=== PATIENT | female | born 1960 | race American Indian/Alaskan Native ===

== ENCOUNTER 2020-08-12 10:15 | Emergency (ER) | payer SELFPAY ==
[2020-08-12] MEDS ORDERED: LORAZEPAM 1 MG TABLET ONE (11:27)
[2020-08-12 11:42] LABS: Absolute Lymphocytes (CBC) 0.9 K/uL (0.7-4.9); Basophils % 0.6 % (0-1.3); Hematocrit 41.5 % (36.0-45.0); Lymphocytes % 16.5 % (15.3-44.8); MPV 9.1 fL (7.6-11.3); RBC Red Blood Cell Count 4.62 M/uL (3.86-4.86)
[2020-08-12 12:01] LABS: Potassium 4.3 mmol/L (3.5-5.1)
[2020-08-12 13:33] LABS: Urine Blood TRACE (NEG); Urine Glucose NEGATIVE (NEG); Urine Protein NEGATIVE (NEG); Urine Specific Gravity 1.025 (1.005-1.030); Urine pH 5.5 (5.0-7.0)
--- NOTE | 2020-08-12 13:37 | EDPHYS ---
Physician Documentation [facility] Name: Oralia Rausch Age: 59 yrs Sex: Female : 1960 Arrival Date: 08/12/2020 Time: 10:17 Bed 8 Private MD: ED Physician Josh Campo HPI: 08/12 15:43 This 59 yrs old Other Female presents to ER via Ambulatory with complaints of Pain, kdr Seizure. 15:44 The patient is having twitching to the left side of her face which she feels a is kdr prodrome to having a seizure. She does not seem to describe an actual seizure but feels that she may have one. She has had trigeminal neuralgia for about seven years and has been on various medications including tegretol. Onset: The symptoms/episode began/occurred today. Severity of symptoms: At their worst the symptoms were very mild in the emergency department the symptoms are unchanged. The patient has experienced similar episodes in the past, a few times. The patient has not recently seen a physician. Historical: - Allergies: 10:41 No Known Allergies; iw - Home Meds: 11:31 Carbamazepine Oral [Active]; gabapentin oral oral [Active]; sertraline oral oral bp [Active]; Alprazolam Oral [Active]; Tramadol Oral [Active]; Metformin Oral [Active]; - PMHx: 10:41 trigeminal neuralgia; kidney cancer; iw - PSHx: 10:41 kidney removed, right; ovary removed; breast augmentation; iw - Immunization history:: Adult Immunizations unknown. - Social history:: Smoking status: unknown. ROS: 17:36 Constitutional: Negative for fever, chills, and weight loss, Eyes: Negative for injury, kdr pain, redness, and discharge, ENT: Negative for injury, pain, and discharge, Neck: Negative for injury, pain, and swelling, Cardiovascular: Negative for chest pain, palpitations, and edema, Respiratory: Negative for shortness of breath, cough, wheezing, and pleuritic chest pain, Abdomen/GI: Negative for abdominal pain, nausea, vomiting, diarrhea, and constipation, Back: Negative for injury and pain, : Negative for injury, bleeding, discharge, and swelling, MS/Extremity: Negative for injury and deformity, Skin: Negative for injury, rash, and discoloration, Psych: Negative for depression, anxiety, suicide ideation, homicidal ideation, and hallucinations, Allergy/Immunology: Negative for hives, rash, and allergies, Endocrine: Negative for neck swelling, polydipsia, polyuria, polyphagia, and marked weight changes, Hematologic/Lymphatic: Negative for swollen nodes, abnormal bleeding, and unusual bruising. 17:36 Neuro: Positive for Right face pain secondary to trigeminal neuralgia. Exam: 17:36 Constitutional: This is a well developed, well nourished patient who is awake, alert, kdr and in no acute distress. Head/Face: Normocephalic, atraumatic. Eyes: Pupils equal round and reactive to light, extra-ocular motions intact. Lids and lashes normal. Conjunctiva and sclera are non-icteric and not injected. Cornea within normal limits. Periorbital areas with no swelling, redness, or edema. Neck: Trachea midline, no thyromegaly or masses palpated, and no cervical lymphadenopathy. Supple, full range of motion without nuchal rigidity, or vertebral point tenderness. No Meningismus. Skin: Warm, dry with normal turgor. Normal color with no rashes, no lesions, and no evidence of cellulitis. MS/ Extremity: Pulses equal, no cyanosis. Neurovascular intact. Full, normal range of motion. Neuro: Awake and alert, GCS 15, oriented to person, place, time, and situation. Cranial nerves II-XII grossly intact. Motor strength 5/5 in all extremities. Sensory grossly intact. Cerebellar exam normal. Normal gait. Psych: Awake, alert, with orientation to person, place and time. Behavior, mood, and affect are within normal limits. Vital Signs: 10:35 BP 113 / 63; Pulse 71; Resp 16; Temp 97.7(TE); Pulse Ox 100% on R/A; Pain 8/10; iw 11:26 BP 116 / 69; Pulse 65; Resp 16; Pulse Ox 100% ; bp 12:25 BP 105 / 63; Pulse 72; Resp 16; Pulse Ox 100% on R/A; ss 13:16 BP 105 / 61; Pulse 75; Resp 16; Pulse Ox 99% ; bp MDM: 13:37 Patient medically screened. kdr 17:36 Data reviewed: vital signs, nurses notes. Counseling: I had a detailed discussion with kdr the patient and/or guardian regarding: the historical points, exam findings, and any diagnostic results supporting the discharge/admit diagnosis, the need for outpatient follow up. 08/12 10:58 Order name: CBC with Diff; Complete Time: 12:47 [facility] 08/12 10:58 Order name: Chem 7; Complete Time: 12:47 [facility] 08/12 10:59 Order name: Tegretol Level; Complete Time: 12:47 kdr 08/12 10:59 Order name: Urine Dipstick-Ancillary (obtain specimen); Complete Time: 13:20 [facility] 08/12 13:24 Order name: Urine Dipstick--Ancillary (enter results) em1 Administered Medications: 11:10 Drug: Ativan 2 mg Route: PO; bp Disposition: 08/12/20 13:37 Discharged to Home. Impression: Altered mental status, unspecified. - Condition is Stable. - Discharge Instructions: Confusion, Seizure, Adult, [id number]. - Prescriptions for Ativan 1 mg Oral Tablet - take 1 tablet by ORAL route every 8 hours As needed; 5 tablet. - Medication Reconciliation Form, Thank You Letter form. - Follow up: Private Physician; When: 2 - 3 days; Reason: If symptoms return, Further diagnostic work-up, Recheck today's complaints, Continuance of care, Re-evaluation by your physician. - Problem is new. - Symptoms have improved. Signatures: Dispatcher [employer] EDMS Josh Campo MD MD kdr Michell Kwan RN RN iw [place], Rishi em1 Naldo Jenkins RN RN bp Corrections: (The following items were deleted from the chart) 14:00 13:37 08/12/2020 13:37 Discharged to Home. Impression: Altered mental status, iw unspecified. Condition is Stable. Forms are Medication Reconciliation Form, Thank You Letter, Antibiotic Education, Prescription Opioid Use. Follow up: Private Physician; When: 2 - 3 days; Reason: If symptoms return, Further diagnostic work-up, Recheck today's complaints, Continuance of care, Re-evaluation by your physician. Problem is new. Symptoms have improved. kdr 14:06 14:00 08/12/2020 13:37 Discharged to Home. Impression: Altered mental status, em1 unspecified. Condition is Stable. Discharge Instructions: Confusion, Seizure, Adult, [id number]. Forms are Medication Reconciliation Form, Thank You Letter. Follow up: Private Physician; When: 2 - 3 days; Reason: If symptoms return, Further diagnostic work-up, Recheck today's complaints, Continuance of care, Re-evaluation by your physician. Problem is new. Symptoms have improved. iw
--- NOTE | 2020-08-12 13:37 | ER ---
Nurse's Notes [facility] Name: Oralia Rausch Age: 59 yrs Sex: Female : 1960 Arrival Date: 08/12/2020 Time: 10:17 Bed 8 Private MD: Diagnosis: Altered mental status, unspecified Presentation: 08/12 10:35 Chief complaint: Patient states: has hx of trigeminal neuralgia, had a seizure this iw morning and yesterday, took gabapentin, tramadol, sertraline and carbamazepine, has had seizures before but seems to be getting worse, was trying to get in to see a neurologist in [place] but could not get her previous physician's notes from [place], Came to ER because she just had a seizure and now she has a lot of pain in her mouth and she is overwhelmed. Coronavirus screen: At this time, the client does not indicate any symptoms associated with coronavirus-19. Ebola Screen: Patient negative for fever greater than or equal to 101.5 degrees Fahrenheit, and additional compatible Ebola Virus Disease symptoms Patient denies exposure to infectious person. Patient denies travel to an Ebola-affected area in the 21 days before illness onset. No symptoms or risks identified at this time. Initial Sepsis Screen: Does the patient meet any 2 criteria? No. Patient's initial sepsis screen is negative. Does the patient have a suspected source of infection? No. Patient's initial sepsis screen is negative. Risk Assessment: Do you want to hurt yourself or someone else? Patient reports no desire to harm self or others. Onset of symptoms was August 12, 2020. 10:35 Method Of Arrival: Ambulatory iw 10:35 Acuity: LEONA 3 iw Triage Assessment: 10:35 General: Appears in no apparent distress. comfortable, obese, Behavior is cooperative, bp appropriate for age, anxious. Pain: Complains of pain in face. EENT: No deficits noted. Neuro: Level of Consciousness is awake, alert, obeys commands, Oriented to person, place, time, situation, Appropriate for age. Cardiovascular: Rhythm is sinus rhythm. Respiratory: No deficits noted. GI: No signs and/or symptoms were reported involving the gastrointestinal system. : No signs and/or symptoms were reported regarding the genitourinary system. Derm: No deficits noted. Musculoskeletal: No deficits noted. Historical: - Allergies: 10:41 No Known Allergies; iw - Home Meds: 11:31 Carbamazepine Oral [Active]; gabapentin oral oral [Active]; sertraline oral oral bp [Active]; Alprazolam Oral [Active]; Tramadol Oral [Active]; Metformin Oral [Active]; - PMHx: 10:41 trigeminal neuralgia; kidney cancer; iw - PSHx: 10:41 kidney removed, right; ovary removed; breast augmentation; iw - Immunization history:: Adult Immunizations unknown. - Social history:: Smoking status: unknown. Screenin:00 Abuse screen: Denies threats or abuse. Denies injuries from another. Nutritional bp screening: No deficits noted. Tuberculosis screening: No symptoms or risk factors identified. Fall Risk None identified. Assessment: 10:35 General: SEE TRIAGE NOTE. bp 11:26 Reassessment: Patient appears in no apparent distress at this time. Patient and/or bp family updated on plan of care and expected duration. Pain level reassessed. Neuro: Seizure activity NONE. 13:16 Reassessment: Patient appears in no apparent distress at this time. Patient and/or bp family updated on plan of care and expected duration. Pain level reassessed. PT AMBULATED TO BATHROOM WITHOUT DIFFICULTY Patient states symptoms have improved. Vital Signs: 10:35 BP 113 / 63; Pulse 71; Resp 16; Temp 97.7(TE); Pulse Ox 100% on R/A; Pain 8/10; iw 11:26 BP 116 / 69; Pulse 65; Resp 16; Pulse Ox 100% ; bp 12:25 BP 105 / 63; Pulse 72; Resp 16; Pulse Ox 100% on R/A; ss 13:16 BP 105 / 61; Pulse 75; Resp 16; Pulse Ox 99% ; bp ED Course: 10:17 Patient arrived in ED. bp1 10:39 Triage completed. iw 10:45 Josh Campo MD is Attending Physician. kdr 10:58 Arm band placed on. iw 11:00 Patient has correct armband on for positive identification. Bed in low position. Call bp light in reach. Side rails up X2. 11:04 Naldo Jenkins, KORI is Primary Nurse. bp 11:24 Initial lab(s) drawn, by me, sent to lab. bp 13:59 No provider procedures requiring assistance completed. IV discontinued, intact, iw bleeding controlled, No redness/swelling at site. Pressure dressing applied. 14:05 Primary Nurse role handed off by Naldo Jenkins, RN em1 Administered Medications: 11:10 Drug: Ativan 2 mg Route: PO; bp Outcome: 13:37 Discharge ordered by . kdr 13:59 Discharged to home ambulatory. iw 13:59 Condition: good 13:59 Discharge instructions given to patient, Instructed on discharge instructions, follow up and referral plans. Demonstrated understanding of instructions, follow-up care. 14:00 Patient left the ED. iw 14:06 Patient left the ED. em1 Signatures: Josh Campo MD MD kdr Michell Kwan, KORI RN Rishi Colbert em1 Nneka Campbell RN RN Naldo Jenkins RN RN Aileen Hernandez bp1 Corrections: (The following items were deleted from the chart) 10:39 10:35 Chief complaint: Patient states: has hx of trigeminal neuralgia, had a seizure iw this morning and yesterday, took gabapentin, tramadol, sertraline and carbamazepine, has had seizures before but seems to be getting worse, was trying to get in to see a neurologist in [place] but could not get her previous physician's notes from [place], 10:41 10:35 Pulse 71bpm; Resp 16bpm; Temp 97.7F Temporal; iw iw
[2020-08-12 14:08] VITALS: TEMP 97.7
[2020-08-12 14:13] VITALS: BP 105/61; O2SAT 99
== END 2020-08-12 14:06 | disposition home or self-care (01) ==
LOC: ER 10:15
DX: R41.82 Altered mental status, unspecified (principal); G50.0 Trigeminal neuralgia; Z85.528 Personal history of other malignant neoplasm of kidney; Z98.82 Breast implant status; Z90.5 Acquired absence of kidney; Z90.721 Acquired absence of ovaries, unilateral
CPT/HCPCS: 36415; 80048; 80156; 81003; 85025; 99284

== ENCOUNTER 2020-08-12 14:17 | Emergency (ER) | payer SELFPAY ==
--- NOTE | 2020-08-12 14:52 | ER ---
Nurse's Notes [facility] Name: Oralia Rausch Age: 59 yrs Sex: Female : 1960 Arrival Date: 08/12/2020 Time: 14:17 Bed 8 Private MD: Diagnosis: Trigeminal neuralgia Presentation: 08/12 14:28 Chief complaint: Patient states: "I don't know what to call it, but I was having this jd3 sharp jaw pain. it has been going on for years, but I thought i was fine when I was discharged just a second ago, but that pain came on and it hurts.". Coronavirus screen: At this time, the client does not indicate any symptoms associated with coronavirus-19. Ebola Screen: Patient negative for fever greater than or equal to 101.5 degrees Fahrenheit, and additional compatible Ebola Virus Disease symptoms. Initial Sepsis Screen: Does the patient meet any 2 criteria? No. Patient's initial sepsis screen is negative. Does the patient have a suspected source of infection? No. Patient's initial sepsis screen is negative. Risk Assessment: Do you want to hurt yourself or someone else? Patient reports no desire to harm self or others. Onset of symptoms was August 12, 2020. 14:28 Acuity: LEONA 5 jd3 14:28 Method Of Arrival: Ambulatory jd3 Triage Assessment: 14:25 General: Appears distressed, uncomfortable, obese, Behavior is appropriate for age, bp anxious, crying. Pain: Complains of pain in face. EENT: No deficits noted. Neuro: Level of Consciousness is awake, alert, obeys commands, Oriented to Appropriate for age. Cardiovascular: No deficits noted. Respiratory: No deficits noted. GI: No signs and/or symptoms were reported involving the gastrointestinal system. : No signs and/or symptoms were reported regarding the genitourinary system. Derm: No deficits noted. Musculoskeletal: No deficits noted. Historical: - Allergies: 14:25 No Known Allergies; bp - Home Meds: 14:25 Tramadol Oral [Active]; sertraline Oral [Active]; Metformin Oral [Active]; gabapentin bp Oral [Active]; Carbamazepine Oral [Active]; Alprazolam Oral [Active]; - PMHx: 14:25 kidney cancer; trigeminal neuralgia; bp - Immunization history:: Adult Immunizations up to date. - Social history:: Smoking status: Patient denies any tobacco usage or history of. Screenin:36 Abuse screen: Denies threats or abuse. Nutritional screening: No deficits noted. jd3 Tuberculosis screening: No symptoms or risk factors identified. Fall Risk Ambulatory Aid- None/Bed Rest/Nurse Assist (0 pts). Gait- Normal/Bed Rest/Wheelchair (0 pts) Mental Status- Oriented to own ability (0 pts). Total Martinez Fall Scale indicates No Risk (0-24 pts). Assessment: 14:45 General: Appears in no apparent distress. uncomfortable, Behavior is calm, cooperative, jd3 appropriate for age. Pain: Complains of pain in face Quality of pain is described as pinching. Neuro: Level of Consciousness is awake, alert, obeys commands, Oriented to person, place, time, situation. Cardiovascular: Denies chest pain, Capillary refill < 3 seconds Patient's skin is warm and dry. Respiratory: Airway is patent Respiratory effort is even, unlabored, Respiratory pattern is regular, symmetrical. GI: No signs and/or symptoms were reported involving the gastrointestinal system. : No signs and/or symptoms were reported regarding the genitourinary system. EENT: Reports pain in left jaw. Derm: Skin is intact, Skin is dry, Skin is normal, Skin temperature is warm. Musculoskeletal: Circulation, motion, and sensation intact. Range of motion: intact in all extremities. 14:59 Reassessment: Patient appears in no apparent distress at this time. Patient and/or jd3 family updated on plan of care and expected duration. Pain level reassessed. Patient is alert, oriented x 3, equal unlabored respirations, skin warm/dry/pink. Patient states feeling better. Vital Signs: 14:30 BP 119 / 61; Pulse 75; Resp 16 S; Temp 97.6(TE); Pulse Ox 99% on R/A; Weight 130 kg jd3 (R); Height 5 ft. 6 in. (170 cm) (R); Pain 7/10; 14:30 Body Mass Index 44.98 (130.00 kg, 170 cm) jd3 [place] Coma Score: 14:25 Eye Response: spontaneous(4). Verbal Response: oriented(5). Motor Response: obeys bp commands(6). Total: 15. ED Course: 14:17 Patient arrived in ED. ag5 14:23 Naldo Jenkins, RN is Primary Nurse. bp 14:29 Triage completed. jd3 14:31 Arm band placed on. jd3 14:32 Josh Campo MD is Attending Physician. kdr 14:37 Patient has correct armband on for positive identification. Bed in low position. Call jd3 light in reach. Side rails up X 1. Adult w/ patient. Pulse ox on. NIBP on. 14:51 Pieter Greco MD is Referral Physician. kdr 14:57 No provider procedures requiring assistance completed. Patient did not have IV access jd3 during this emergency room visit. Administered Medications: No medications were administered Outcome: 14:51 Discharge ordered by . kdr 14:57 Discharged to home ambulatory. jd3 14:57 Condition: stable 14:57 Discharge instructions given to patient, Instructed on discharge instructions, follow up and referral plans. Demonstrated understanding of instructions, follow-up care. 14:59 Patient left the ED. jd3 Signatures: Josh Campo MD MD kdr Alessandro Woodward RN RN jd3 Naldo Jenkins, KORI RN Annie Macias ag5 Corrections: (The following items were deleted from the chart) 14:59 14:45 Reassessment: Patient appears in no apparent distress at this time. Patient jd3 and/or family updated on plan of care and expected duration. Pain level reassessed. Patient is alert, oriented x 3, equal unlabored respirations, skin warm/dry/pink. jd3
--- NOTE | 2020-08-12 14:52 | EDPHYS ---
Physician Documentation [facility] Name: Oralia Rausch Age: 59 yrs Sex: Female : 1960 Arrival Date: 08/12/2020 Time: 14:17 Bed 8 Private MD: ED Physician Josh Campo HPI: 08/12 18:16 This 59 yrs old Other Female presents to ER via Ambulatory with complaints of CHRONIC kdr PAIN. 18:16 The patient continues to be concerned about having a seizure. She was just discharged kdr from the ED for a similar problem - no new ROS/Exam was done for this visit as the patient literally walked out the door and then walked back in.. No new c/o. Historical: - Allergies: 14:25 No Known Allergies; bp - Home Meds: 14:25 Tramadol Oral [Active]; sertraline Oral [Active]; Metformin Oral [Active]; gabapentin bp Oral [Active]; Carbamazepine Oral [Active]; Alprazolam Oral [Active]; - PMHx: 14:25 kidney cancer; trigeminal neuralgia; bp - Immunization history:: Adult Immunizations up to date. - Social history:: Smoking status: Patient denies any tobacco usage or history of. ROS: 18:19 Constitutional: Negative for fever, chills, and weight loss, Eyes: Negative for injury, kdr pain, redness, and discharge. Exam: 18:19 Constitutional: This is a well developed, well nourished patient who is awake, alert, kdr and in no acute distress. Head/Face: Normocephalic, atraumatic. Vital Signs: 14:30 BP 119 / 61; Pulse 75; Resp 16 S; Temp 97.6(TE); Pulse Ox 99% on R/A; Weight 130 kg jd3 (R); Height 5 ft. 6 in. (170 cm) (R); Pain 7/10; 14:30 Body Mass Index 44.98 (130.00 kg, 170 cm) jd3 [place] Coma Score: 14:25 Eye Response: spontaneous(4). Verbal Response: oriented(5). Motor Response: obeys bp commands(6). Total: 15. MDM: 14:51 Patient medically screened. kdr 18:16 Data reviewed: vital signs, nurses notes. Counseling: I had a detailed discussion with kdr the patient and/or guardian regarding: the historical points, exam findings, and any diagnostic results supporting the discharge/admit diagnosis, the need for outpatient follow up. ED course: I d/w the patient her need for follow-up and continuance of her current medication routine. Administered Medications: No medications were administered Disposition: 08/12/20 14:51 Discharged to Home. Impression: Trigeminal neuralgia. - Condition is Stable. - Discharge Instructions: Neuropathic Pain, Trigeminal Neuralgia. - Medication Reconciliation Form, Thank You Letter form. - Follow up: Private Physician; When: 2 - 3 days; Reason: If symptoms return, Further diagnostic work-up, Recheck today's complaints, Continuance of care, Re-evaluation by your physician. Follow up: Pieter Greco MD; When: 2 - 3 days; Reason: If symptoms return, Further diagnostic work-up, Recheck today's complaints, Continuance of care, Re-evaluation by your physician. - Problem is an ongoing problem. - Symptoms have improved. Signatures: Josh Campo MD MD kdr Alessandro Woodward RN RN jd3 Naldo Jenkins RN RN bp Corrections: (The following items were deleted from the chart) 14:59 14:51 08/12/2020 14:51 Discharged to Home. Impression: Trigeminal neuralgia. Condition jd3 is Stable. Forms are Medication Reconciliation Form, Thank You Letter, Antibiotic Education, Prescription Opioid Use. Follow up: Private Physician; When: 2 - 3 days; Reason: If symptoms return, Further diagnostic work-up, Recheck today's complaints, Continuance of care, Re-evaluation by your physician. Follow up: Pieter Greco; When: 2 - 3 days; Reason: If symptoms return, Further diagnostic work-up, Recheck today's complaints, Continuance of care, Re-evaluation by your physician. Problem is an ongoing problem. Symptoms have improved. kdr
[2020-08-12 15:04] VITALS: BP 119/61; TEMP 97.6; O2SAT 99
== END 2020-08-12 14:59 | disposition home or self-care (01) ==
LOC: ER 14:17
DX: G50.0 Trigeminal neuralgia (principal); Z85.528 Personal history of other malignant neoplasm of kidney
CPT/HCPCS: 99283